=== PATIENT | female | born 1995 | race Two or more races ===

== ENCOUNTER 2023-04-18 10:23 | Emergency (ER) | payer OTHER ==
[~2023-04-18] VITALS: Ht 157.5 cm; Wt 56.7 kg
== END 2023-04-18 14:19 | disposition home or self-care (01) ==
LOC: ER 10:23
DX: K52.9 Noninfective gastroenteritis and colitis, unspecified (principal); A08.8 Other specified intestinal infections; R10.9 Unspecified abdominal pain

== ENCOUNTER 2023-04-28 08:42 | Emergency (ER) | payer OTHER ==
[~2023-04-28] VITALS: Ht 165.1 cm; Wt 55.3 kg
== END 2023-04-28 12:43 | disposition home or self-care (01) ==
LOC: ER 08:42
DX: R53.81 Other malaise (principal); H10.9 Unspecified conjunctivitis; Z20.822 Contact with and (suspected) exposure to COVID-19

== ENCOUNTER 2024-12-01 10:08 | Emergency (ER) | payer OTHER ==
[~2024-12-01] VITALS: Ht 165.1 cm; Wt 60.8 kg
== END 2024-12-01 13:48 | disposition home or self-care (01) ==
LOC: ER 10:10
DX: B34.9 Viral infection, unspecified (principal); Z20.822 Contact with and (suspected) exposure to COVID-19